=== PATIENT | male | born 1965 | race Caucasian/White ===

== ENCOUNTER → 2022-10-16 | Outpatient (CLI) | payer BC ==
[~2022-10-16] MED LIST: VITA100093 PO
== END ==
LOC: M LABSMTC 09:09
PROVIDERS: ATTEND Anesthesiology
DX: Z01.818 Encounter for other preprocedural examination (principal); Z11.52 Encounter for screening for COVID-19

== ENCOUNTER 2022-10-19 08:19 | Day surgery (SDC) | payer BC ==
[~2022-10-19] VITALS: Ht 177.8 cm; Wt 81.6 kg
[~2022-10-19 08:19] MED LIST changes: +NS 1,000 ML IV ONE
[2022-10-19] MEDS ORDERED: LIDOCAINE 2% 100MG/5ML SDV (FOR ANES.) As Ordered ONE (10:39)
[2022-10-19] MEDS ORDERED: propofoL 500 MG/50 ML VIAL As Ordered ONE (10:39)
[2022-10-19 11:41] VITALS: BP 122/75
[2022-10-19] MEDS ORDERED: D-3-50003 PO (20:36)
== END 2022-10-19 11:44 | disposition home or self-care (01) ==
LOC: M OPP 08:19
PROVIDERS: ATTEND Surgery
DX: Z12.11 Encounter for screening for malignant neoplasm of colon (principal); Z80.0 Family history of malignant neoplasm of digestive organs; D12.6 Benign neoplasm of colon, unspecified; Z88.0 Allergy status to penicillin

== ENCOUNTER 2022-10-19 16:56 | Inpatient (IN) | payer BC ==
[~2022-10-19] VITALS: Ht 177.8 cm; Wt 83.5 kg
[~2022-10-19 16:56] MED LIST changes: -NS 1,000 ML IV ONE
[2022-10-19] MEDS ORDERED: NS 1,000 ML IV ONE (17:30)
[2022-10-19 17:58] LABS: BASO % 0.2 % (0.0-1.0); HEMATOCRIT 44.6 % (42.0-52.0); HEMOGLOBIN 15.3 g/dl (13.5-17.5); LYMPH # 0.5 10^3/uL (1.5-5.0); LYMPH % 2.6 % (24.0-44.0); MEAN CORPUSCULAR HEMOGLOBIN 29.6 pg (27.0-33.0); MEAN CORPUSCULAR HGB CONC 34.3 g/dl (32.0-36.5); MEAN CORPUSCULAR VOLUME 86.3 fl (80.0-96.0); MONO # 1.1 10^3/uL (0.0-0.8); NEUTROPHILS # 16.7 10^3/uL (1.5-8.5); NEUTROPHILS % 90.5 % (36.0-66.0); PLATELET COUNT, AUTOMATED 221 10^3/uL (150-450); RED BLOOD COUNT 5.17 10^6/uL (4.30-6.10); WHITE BLOOD COUNT 18.4 10^3/uL (4.0-10.0)
[2022-10-19 18:20] LABS: ALBUMIN 3.9 G/DL (3.2-5.2); ALKALINE PHOSPHATASE 75 U/L (46-116); ALT/SGPT 34 U/L (7.0-40); AST/SGOT 27 U/L (<34); BILIRUBIN,DIRECT 0.6 MG/DL (<0.4); BILIRUBIN,TOTAL 1.8 MG/DL (0.3-1.2); BLOOD UREA NITROGEN 16 MG/DL (9-23); CALCIUM LEVEL 9.4 MG/DL (8.5-10.1); CARBON DIOXIDE LEVEL 24 MMOL/L (20-31); CHLORIDE LEVEL 104 MMOL/L (98-107); CREATININE FOR GFR 1.05 MG/DL (0.70-1.30); GLOMERULAR FILTRATION RATE > 60.0 (>56); GLUCOSE, FASTING 149 MG/DL (60-100); POTASSIUM SERUM 3.9 MMOL/L (3.5-5.1); SODIUM LEVEL 137 MMOL/L (136-145); TOTAL PROTEIN 6.3 G/DL (5.7-8.2)
[2022-10-19] MEDS ORDERED: metroNIDAZOLE 500 MG in IV 1 EA IV ONE ×2 (18:45→18:55)
[2022-10-19] MEDS ORDERED: FUROSEMIDE 20MG/2ML VIAL IV ONE (18:45)
[2022-10-19] MEDS ORDERED: NS 1,000 ML IV SCH (18:45)
[2022-10-19] MEDS ORDERED: cefTRIAXone SOD 1 GM in D5W MINI-BAG PLUS 50 ML IV ONE ×2 (18:45→18:55)
[2022-10-19] MEDS ORDERED: KETOROLAC 30 MG/ML 1ML VIAL IV ONE (19:25)
[2022-10-19] MEDS ORDERED: ACETAMINOPHEN TAB 650MG DOSE (2X325MG) PO PRN (19:25)
[2022-10-19] MEDS ORDERED: IPRATROPIUM 0.5MG/ALBUTEROL 2.5MG INH SOL UD 3ML (DUONEB) NEB PRN (19:25)
[2022-10-19] MEDS ORDERED: BENZONATATE 100MG CAPSULE PO PRN (19:25)
[2022-10-19] MEDS ORDERED: ISOVUE-370 76% 100ML VIAL As Ordered ONE (19:29)
[2022-10-19] MEDS ORDERED: D-3-50003 PO (20:36)
[2022-10-19] MEDS ORDERED: HOME MED LIST COMPLETE! XX SCH (20:40)
[2022-10-19] MEDS: NS 1,000 ML IV SCH (21:01)
[2022-10-19 22:34] VITALS: BP 108/48
[2022-10-19] MEDS: LevoFLOXacin IV 750 MG in IV 1 EA IV SCH (22:56)
[2022-10-20] MEDS: NS 1,000 ML IV SCH (05:09)
[2022-10-20 05:35] VITALS: BP 110/52
[2022-10-20 05:46] LABS: HEMATOCRIT 43.2 % (42.0-52.0); HEMOGLOBIN 14.6 g/dl (13.5-17.5); MEAN CORPUSCULAR HEMOGLOBIN 29.3 pg (27.0-33.0); MEAN CORPUSCULAR HGB CONC 33.8 g/dl (32.0-36.5); MEAN CORPUSCULAR VOLUME 86.6 fl (80.0-96.0); PLATELET COUNT, AUTOMATED 234 10^3/uL (150-450); RED BLOOD COUNT 4.99 10^6/uL (4.30-6.10)
[2022-10-20 06:21] LABS: ALBUMIN 3.3 G/DL (3.2-5.2); ALKALINE PHOSPHATASE 68 U/L (46-116); ALT/SGPT 37 U/L (7.0-40); AST/SGOT 21 U/L (<34); BILIRUBIN,TOTAL 1.1 MG/DL (0.3-1.2); BLOOD UREA NITROGEN 20 MG/DL (9-23); CALCIUM LEVEL 8.9 MG/DL (8.5-10.1); CARBON DIOXIDE LEVEL 24 MMOL/L (20-31); CHLORIDE LEVEL 105 MMOL/L (98-107); CREATININE FOR GFR 1.15 MG/DL (0.70-1.30); GLOMERULAR FILTRATION RATE > 60.0 (>56); GLUCOSE, FASTING 130 MG/DL (60-100); MAGNESIUM LEVEL 1.6 MG/DL (1.8-2.4); POTASSIUM SERUM 4.4 MMOL/L (3.5-5.1); SODIUM LEVEL 138 MMOL/L (136-145); TOTAL PROTEIN 5.9 G/DL (5.7-8.2)
[2022-10-20] MEDS ORDERED: MAG SULF 1GM/100ML (MAG RUN) 1 GM in IV 1 EA IV ONE (12:00)
[2022-10-20] MEDS: metroNIDAZOLE (FLAGYL) 500MG TABLET PO SCH ×2 (13:10→22:13)
[2022-10-20 14:00] VITALS: BP 121/64
[2022-10-20] MEDS ORDERED: ENOXAPARIN 40MG/0.4ML SYRINGE (J1650 PER 10MG) SC SCH (14:25)
[2022-10-20 20:00] VITALS: BP 132/63
[2022-10-20] MEDS: LevoFLOXacin IV 750 MG in IV 1 EA IV SCH (20:32)
[2022-10-21] MEDS: metroNIDAZOLE (FLAGYL) 500MG TABLET PO SCH (06:22)
[2022-10-21] MEDS ORDERED: MAG SULF 1GM/100ML (MAG RUN) 1 GM in IV 1 EA IV ONE (06:55)
[2022-10-21 07:16] LABS: BASO % 0.2 % (0.0-1.0); EOS % 0.2 % (0.0-3.0); HEMATOCRIT 39.6 % (42.0-52.0); HEMOGLOBIN 13.5 g/dl (13.5-17.5); LYMPH # 1.4 10^3/uL (1.5-5.0); LYMPH % 8.5 % (24.0-44.0); MEAN CORPUSCULAR HEMOGLOBIN 29.5 pg (27.0-33.0); MEAN CORPUSCULAR HGB CONC 34.1 g/dl (32.0-36.5); MEAN CORPUSCULAR VOLUME 86.7 fl (80.0-96.0); MONO # 0.9 10^3/uL (0.0-0.8); MONO % 5.1 % (2.0-8.0); NEUTROPHILS # 14.2 10^3/uL (1.5-8.5); NEUTROPHILS % 85.3 % (36.0-66.0); PLATELET COUNT, AUTOMATED 223 10^3/uL (150-450); RED BLOOD COUNT 4.57 10^6/uL (4.30-6.10); WHITE BLOOD COUNT 16.6 10^3/uL (4.0-10.0)
[2022-10-21] MEDS ORDERED: LEVO1TAB40 PO (08:42)
[2022-10-21] MEDS ORDERED: METR-265 PO (08:42)
[2022-10-24 15:07] LABS: BODY FLUID CULTURE Not indicated. (.); LEGIONELLA ANTIGEN URINE Negative (Negative); ORGANISM ID Not indicated. (.); SPECIMEN SOURCE Urine (.); URINE STREP PNEUMONIAE ANTIGEN Negative (Negative)
== END 2022-10-21 09:40 | disposition home or self-care (01) | DRG 720 ==
LOC: M ED 16:56 → M MSPAV 19:23 → M ED INP 19:23 → ENRESERV 21:09 → M MSPAV 22:15
PROVIDERS: ADMIT Family Medicine; ATTEND Internal Medicine
DX: A41.9 Sepsis, unspecified organism (principal); J69.0 Pneumonitis due to inhalation of food and vomit; J15.6 Pneumonia due to other Gram-negative bacteria; R04.2 Hemoptysis; Z88.0 Allergy status to penicillin; E83.42 Hypomagnesemia